=== PATIENT | female | born 1995 | race Caucasian/White ===

== ENCOUNTER → 2018-04-03 | Outpatient (CLI) | payer MEDICAID ==
[2018-04-03 15:57] LABS: RBCS (WET MOUNT) FEW RBCS SEEN; T.VAGINALIS (WET MOUNT) NO TRICHOMONAS SEEN; WBCS (WET MOUNT) 2+ WBCS SEEN; YEAST (WET MOUNT) NO YEAST SEEN
[2018-04-03 15:58] LABS: EPITHELIALS (WET MOUNT) 3+ EPITHELIALS SEEN
[2018-04-03 17:13] LABS: CHLAM PCR NOT DETECTED (NOT DETECT); GON PCR NOT DETECTED (NOT DETECT)
== END ==
LOC: LAB 15:30
PROVIDERS: ATTEND Nurse Practitioner Family
DX: N89.8 Other specified noninflammatory disorders of vagina (principal); R30.0 Dysuria
CPT/HCPCS: 87086; 87210; 87491; 87591

== ENCOUNTER 2018-10-04 21:44 | Emergency (ER) | payer BC, MEDICAID ==
[2018-10-05 01:03] LABS: APPEARANCE,URINE CLEAR; BILIRUBIN,URINE NEGATIVE (NEGATIVE); COLOR,URINE YELLOW; GLUCOSE, URINE NEGATIVE (NEGATIVE); KETONES,URINE NEGATIVE (NEGATIVE); LEUKOCYTE ESTERASE,URINE NEGATIVE (NEGATIVE); NITRITE,URINE NEGATIVE (NEGATIVE); PROTEIN,URINE NEGATIVE (NEGATIVE); URINE SPECIFIC GRAVITY 1.014; UROBILINOGEN,URINE NEGATIVE mg/dL (<2.0)
--- NOTE | 2018-10-05 01:46 | RADIOLOGY REPORT (SQ) ---
EXAM DESCRIPTION: US TRANSVAGINAL COMPLETED DATE/TME: 10/05/2018 00:46 CLINICAL HISTORY: 23 years, Female, right pelvic pain, eval IUD COMPARISON: None. TECHNIQUE: LIMITATIONS: None. FINDINGS: The IUD is positioned within the endometrial cavity. There are no fibroids. The ovaries are unremarkable and contain small follicular cysts bilaterally. Blood flow was demonstrated in both ovaries with Doppler. No free fluid. IMPRESSION: The IUD is within the endometrial cavity. copyright 2010 [employer]- All Rights Reserved
[2018-10-05] MEDS ORDERED: AZITHROMYCIN 250 MG TABLET PO ONE (02:48)
[2018-10-05] MEDS ORDERED: CEFTRIAXONE INJ 250 MG VIAL IM ONE (02:48)
[2018-10-05 03:01] LABS: RBCS (WET MOUNT) NO RBCS SEEN; T.VAGINALIS (WET MOUNT) NO TRICHOMONAS SEEN; WBCS (WET MOUNT) NO WBCS SEEN; YEAST (WET MOUNT) NO YEAST SEEN
--- NOTE | 2018-10-05 03:20 | ER Document Report ---
ED General - General Chief Complaint: Vaginal Pain Stated Complaint: VAGINAL PAIN Time Seen by Provider: 10/05/18 00:42 TRAVEL OUTSIDE OF THE [place] IN LAST 30 DAYS: No - HPI Notes: Patient presents to the emergency department for evaluation of pelvic and "cervix" pain. She states is been going on for the last few weeks but worse over the last several days. She states it is worsened by pressure in the area as well as sexual intercourse. She has an IUD that is been in place for some time. She denies any vaginal discharge. She states she does feel like she has some urinary frequency. She is not currently in a monogamous relationship. - Related Data Allergies/Adverse Reactions: No Known Allergies Allergy (Unverified 03/01/18 22:45) Past Medical History - General Information source: Patient - Social History Smoking Status: Current Every Day Smoker Family History: Reviewed & Not Pertinent Patient has suicidal ideation: No Patient has homicidal ideation: No Renal/ Medical History: Denies: Hx Peritoneal Dialysis - Immunizations Immunizations up to date: Yes Hx Diphtheria, Pertussis, Tetanus Vaccination: Yes Review of Systems - Review of Systems Constitutional: No symptoms reported EENT: No symptoms reported Cardiovascular: No symptoms reported Respiratory: No symptoms reported Gastrointestinal: No symptoms reported Genitourinary: See HPI Female Genitourinary: See HPI Musculoskeletal: No symptoms reported Skin: No symptoms reported Neurological/Psychological: No symptoms reported Physical Exam - Vital signs Vitals: Temp Pulse Resp BP Pulse Ox 98.0 F 80 16 123/87 H 100 10/04/18 22:22 10/04/18 22:22 10/04/18 22:22 10/04/18 22:22 10/04/18 22:22 - Notes Notes: Vital signs reviewed, please refer to chart. Patient is normocephalic, atraumatic. Pupils equal round, reactive to light. Neck is supple without meningismus. Heart is regular rate and rhythm. Lungs are clear to auscultation bilaterally. Abdomen is soft, nontender, normoactive bowel sounds throughout. External genitalia reveals no abnormalities on exam. Speculum exam performed. There is some white discharge adherent to the vaginal wall. Some cervical motion tenderness appreciated. No discharge at the cervix itself. No adnexal masses. Extremities without cyanosis, clubbing, edema. Peripheral pulses are equal. Skin is warm and dry. Patient is awake, alert, neurological exam is nonfocal. Course - Re-evaluation Re-evalutation: 10/05/18 03:23 Patient presents to the emergency department for evaluation. Laboratory investigations revealed unremarkable urine. Ultrasound was unremarkable. P elvic exam was remarkable for discharge. I discussed this with patient and we did opt to treat for gonorrhea and chlamydia empirically. Her wet mount is negative. I do not have a clear etiology for her pain beyond the possibility of gonorrhea chlamydia at this time. She was medicated here with Rocephin and Zithromax. We will have her follow-up with primary care/[facility] in the next 1-2 weeks. She is to return to the emergency department with worsening or new concerning symptoms of any sort. 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 Return to the emergency department with worsening or new concerning symptoms.
[2018-10-05 03:35] VITALS: BP 139/80
[2018-10-05 04:25] LABS: CHLAM PCR NOT DETECTED (NOT DETECT); GON PCR NOT DETECTED (NOT DETECT)
== END 2018-10-05 03:35 | disposition home or self-care (01) ==
LOC: ER 21:44
DX: R10.2 Pelvic and perineal pain (principal); F17.200 Nicotine dependence, unspecified, uncomplicated
CPT/HCPCS: 99284; 96372; 87210; 81025; 81001; 87491; 87591; 76830; 93976; J0696

== ENCOUNTER 2019-06-18 12:31 | Emergency (ER) | payer BC, MEDICAID ==
--- NOTE | 2019-06-18 12:41 | ER Document Report ---
HPI - HPI Time Seen by Provider: 06/18/19 12:38 Notes: Patient is an otherwise healthy 24-year-old female presenting to the emergency department chief complaint of right ankle and foot pain. 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 She states she is tried taking Tylenol or ibuprofen the first couple of days. She states the ankle still giving her pain so she decided to come in and be seen. - REPRODUCTIVE Reproductive: DENIES: : Past Medical History - General Information source: Patient - Social History Smoking Status: Never Smoker Frequency of alcohol use: Occasional Drug Abuse: None Family History: Reviewed & Not Pertinent - Medical History Medical History: Negative Renal/ Medical History: Denies: Hx Peritoneal Dialysis Surgical Hx: Negative - Immunizations Immunizations up to date: Yes Hx Diphtheria, Pertussis, Tetanus Vaccination: Yes Vertical Provider Document - CONSTITUTIONAL Notes: PHYSICAL EXAMINATION: GENERAL: Well-appearing, well-nourished and in no acute distress. HEAD: Atraumatic, normocephalic. EYES: Pupils equal round extraocular movements intact, conjunctiva are normal. ENT: Nares patent NECK: Normal range of motion LUNGS: No respiratory distress Musculoskeletal: Normal range of motion, no swelling, ecchymosis or erythema noted to right foot or ankle. Strong dorsalis pedis pulse, normal cap refill. NEUROLOGICAL: Normal speech, normal gait. PSYCH: Normal mood, normal affect. SKIN: Warm, Dry, normal turgor, no rashes or lesions noted. - INFECTION CONTROL TRAVEL OUTSIDE OF THE [place] IN LAST 30 DAYS: No Course - Re-evaluation Re-evalutation: 06/18/19 13:26 Ankle X-Ray 06/18/19 12:39 IMPRESSION: No fracture or dislocation of the right foot or ankle. Joint spaces are well preserved. Foot X-Ray 06/18/19 12:39 IMPRESSION: No fracture or dislocation of the right foot or ankle. Joint spaces are well preserved. X-rays negative as outlined above. Likely sprain. Patient will be placed in Denis wrap, crutches and will be discharged home. Patient understands ED return precautions and agrees with plan. The patient's emergency department workup and current diagnosis were explained to the patient and or family. Follow-up instructions were provided. Medications if prescribed were discussed. Instructions for when to return to the emergency department including specific worrisome symptoms were discussed with the patient and/or family. Procedures - Immobilization Right foot Pre-Proc Neuro Vasc Exam: Normal Immobilizer type: Denis wrap, Crutches Performed by: PCT Post-Proc Neuro Vasc Exam: Normal Alignment checked and good: No Discharge - Discharge Clinical Impression: Ankle pain Qualifiers: Chronicity: acute Laterality: right Qualified Code(s): M25.571 - Pain in right ankle and joints of right foot Foot pain Qualifiers: Laterality: right Qualified Code(s): M79.671 - Pain in right foot Condition: Stable Disposition: HOME, SELF-CARE Additional Instructions: Your x-ray does not show any acute fracture. You have a sprained ankle. Keep the area elevated, apply ice 20 minutes every 2 hours, and use crutches as need ed. You should take ibuprofen 600 mg every 6 hours as needed for pain. Please return if you have worsening pain and swelling, fever greater than 101, you notice spreading redness from the area, or have any other symptoms that are concerning to you. Please follow-up with orthopedic surgery if your symptoms have not improved in the next 2-3 weeks. Forms: Return to Work
[2019-06-18 12:44] VITALS: BP 135/92
--- NOTE | 2019-06-18 13:24 | RADIOLOGY REPORT (SQ) ---
EXAM DESCRIPTION: FOOT RIGHT COMPLETE; ANKLE RIGHT COMPLETE COMPLETED DATE/TIME: 06/18/2019 12:55 pm REASON FOR STUDY: fell off dancing pole 5 days ago, ankle/foot pain COMPARISON: None. NUMBER OF VIEWS: Three views. TECHNIQUE: AP, lateral and oblique radiographic images acquired of the right foot and ankle. LIMITATIONS: None. FINDINGS: MINERALIZATION: Normal. BONES: No acute fracture or dislocation. No worrisome bone lesions. JOINTS: No effusions. SOFT TISSUES: No soft tissue swelling. No foreign body. OTHER: No other significant finding. IMPRESSION: No fracture or dislocation of the right foot or ankle. Joint spaces are well preserved. TECHNICAL DOCUMENTATION: JOB ID: [id number] [employer]- All Rights Reserved Reading location - IP/workstation name: [email or web address]
--- NOTE | 2019-06-18 13:24 | RADIOLOGY REPORT (SQ) ---
EXAM DESCRIPTION: FOOT RIGHT COMPLETE; ANKLE RIGHT COMPLETE COMPLETED DATE/TIME: 06/18/2019 12:55 pm REASON FOR STUDY: fell off dancing pole 5 days ago, ankle/foot pain COMPARISON: None. NUMBER OF VIEWS: Three views. TECHNIQUE: AP, lateral and oblique radiographic images acquired of the right foot and ankle. LIMITATIONS: None. FINDINGS: MINERALIZATION: Normal. BONES: No acute fracture or dislocation. No worrisome bone lesions. JOINTS: No effusions. SOFT TISSUES: No soft tissue swelling. No foreign body. OTHER: No other significant finding. IMPRESSION: No fracture or dislocation of the right foot or ankle. Joint spaces are well preserved. TECHNICAL DOCUMENTATION: JOB ID: [id number] [employer]- All Rights Reserved Reading location - IP/workstation name: [email or web address]
== END 2019-06-18 14:13 | disposition home or self-care (01) ==
LOC: ER 12:31
DX: M25.571 Pain in right ankle and joints of right foot (principal); M79.671 Pain in right foot
CPT/HCPCS: 99283

== ENCOUNTER → 2019-08-15 | Outpatient (CLI) | payer SELFPAY | LOC: OD 16:54 | PROVIDERS: ATTEND Specialist | DX: N93.9 Abnormal uterine and vaginal bleeding, unspecified (principal) | CPT/HCPCS: 36415; 84702 ==

== ENCOUNTER → 2019-08-21 | Outpatient (CLI) | payer BC, MEDICAID | LOC: OD 09:21 | PROVIDERS: ATTEND Specialist | DX: N93.9 Abnormal uterine and vaginal bleeding, unspecified (principal) | CPT/HCPCS: 36415; 84702 ==